=== PATIENT | female | born 1995 | race Caucasian/White ===

== ENCOUNTER 2017-05-26 22:50 | Emergency (ER) | payer SELFPAY ==
[2017-05-27] MEDS ORDERED: Acetaminophen TAB* 325 MG PO ONE (00:40)
[2017-05-27] MEDS ORDERED: NS 0.9% 1000 ML* 1,000 ML IV ONE (00:40)
[2017-05-27] MEDS ORDERED: Ondansetron INJ* 2 MG/ML VIAL IV ONE (00:40)
[2017-05-27] MEDS ORDERED: Loperamide CAP* 2 MG PO ONE (00:42)
[2017-05-27 01:10] LABS: ABS Basophils 0 10^3/ul (0-0.2); ABS Eosinophils 0 10^3/ul (0-0.6); ABS Lymphocytes 0.9 10^3/ul (1.0-4.8); ABS Monocytes 0.7 10^3/ul (0-0.8); ABS Neutrophils 5.5 10^3/ul (1.5-7.7); ABS Nucleated RBC 0 10^3/ul; Eosinophil % 0.4 % (0-6); Hematocrit 45 % (35-47); Hemoglobin 14.8 g/dl (12.0-16.0); Lymphocyte % 12.5 % (25-47); Mean Corpuscular HGB Conc 33 g/dl (31-36); Mean Corpuscular Hemoglobin 28 pg (27-31); Mean Corpuscular Volume 85 fL (80-97); Mean Platelet Volume 9 um3 (7.4-10.4); Nucleated Red Blood Cells % 0.1; Platelet Count 253 10^3/ul (150-450); Red Blood Count 5.25 10^6/ul (4.0-5.4); Red Cell Distribution Width 14 % (10.5-15); White Blood Count 7.2 10^3/ul (3.5-10.8)
[2017-05-27 01:23] LABS: EGFR Non-African American 87.2 (>60)
[2017-05-27 02:06] VITALS: BP 106/71
--- NOTE | 2017-05-27 02:07 | ED ---
Tate Aburto Angela, scribed for Kenny Esteves MD on 05/27/17 at 0044 . GI/ HPI - HPI Summary HPI Summary: This pt is a 21 y/o female presenting to [facility] c/o nausea, vomiting, diarrhea, and abd pain since yesterday. Pt additionally reports chills and fever. She is unable to recall her maximum temperature last night. She describes diarrhea as liquid. LMP: the beginning of April. - History of Current Complaint Chief Complaint: EDNauseaVomitDiarrh Time Seen by Provider: 05/27/17 00:32 Stated Complaint: FEVER Hx Obtained From: Patient Hx Last Menstrual Period: 04/18/14 Onset/Duration: Started Days Ago - 1, Still Present Timing: Lasting Days - 1 Current Severity: Moderate Pain Intensity: 10 Location of Pain: Diffuse Associated Signs and Symptoms: Positive: Nausea, Vomiting, Diarrhea, Fever, Chills Aggravating Factor(s): Nothing Alleviating Factor(s): Nothing - Allergy/Home Medications Allergies/Adverse Reactions: Allergies Allergy/AdvReac Type Severity Reaction Status Date / Time No Known Allergies Allergy Verified 05/26/17 23:02 PMH/Surg Hx/FS Hx/Imm Hx Endocrine/Hematology History: Denies: Hx Diabetes Cardiovascular History: Denies: Hx Hypertension Infectious Disease History: No Infectious Disease History: Denies: History Other Infectious Disease, Traveled Outside the [place] in Last 30 Days - Family History Known Family History: Negative: Cardiac Disease, Hypertension, Diabetes - Social History Alcohol Use: None Substance Use Type: Reports: None Smoking Status (MU): Never Smoked Tobacco Review of Systems Positive: Fever, Chills Cardiovascular: Negative Respiratory: Negative Positive: Abdominal Pain, Vomiting, Diarrhea, Nausea Musculoskeletal: Negative Skin: Negative Neurological: Negative All Other Systems Reviewed And Are Negative: Yes Physical Exam - Summary Physical Exam Summary: VITAL SIGNS: Reviewed. GENERAL: Patient is a well-developed and nourished female who is lying comfortable in the stretcher. Patient is not in any acute respiratory distress. HEAD AND FACE: No signs of trauma. No ecchymosis, hematomas or skull depressions. No sinus tenderness. EYES: PERRLA, EOMI x 2, No injected conjunctiva, no nystagmus. EARS: Hearing grossly intact. Ear canals and tympanic membranes are within normal limits. MOUTH: Oropharynx within normal limits. NECK: Supple, trachea is midline, no adenopathy, no JVD, no carotid bruit, no c- spine tenderness, neck with full ROM. CHEST: Symmetric, no tenderness at palpation LUNGS: Clear to auscultation bilaterally. No wheezing or crackles. CVS: Regular rate and rhythm, S1 and S2 present, no murmurs or gallops appreciated. ABDOMEN: Soft, non-tender. No signs of distention. No rebound no guarding, and no masses palpated. Bowel sounds are normal. EXTREMITIES: FROM in all major joints, no edema, no cyanosis or clubbing. NEURO: Alert and oriented x 3. No acute neurological deficits. Speech is normal and follows commands. SKIN: Dry and warm Triage Information Reviewed: Yes Vital Signs On Initial Exam: Initial Vitals Temp Pulse Resp BP Pulse Ox 97.8 F 111 18 118/81 98 05/26/17 23:00 05/26/17 23:00 05/26/17 23:00 05/26/17 23:00 05/26/17 23:00 Vital Signs Reviewed: Yes Diagnostics - Vital Signs Vital Signs Temp Pulse Resp BP Pulse Ox 05/26/17 23:00 97.8 F 111 18 118/81 98 - Laboratory Result Diagrams: 05/27/17 00:50 05/27/17 00:50 Lab Statement: Any lab studies that have been ordered have been reviewed, and results considered in the medical decision making process. GIGU Course/Dx - Course Course Of Treatment: Pt is a 21 y/o female who presents with nausea, vomiting, diarrhea, and abd pain since yesterday. In the ED course the pt was given IV fluids, Tylenol, Imodium, Zofran. Influenza A and B is negative. Pt will be discharged home with follow up from her PCP. She is instructed to return to the ED for any worsening symptoms. Pt will be given a prescription for Zofran. - Diagnoses Provider Diagnoses: Gastroenteritis, Viral syndrome Discharge - Discharge Plan Condition: Stable Disposition: HOME Prescriptions: Ondansetron TAB* [Zofran 4 MG Tab*] 8 mg PO Q6H PRN #20 tab PRN Reason: Nausea/Vomiting Patient Education Materials: Gastroenteritis (ED), Viral Syndrome (ED) Forms: *Work Release Referrals: Chaparro Baca MD [Primary Care Provider] - 2 Days Additional Instructions: Please follow up with your primary care provider. RETURN TO EMERGENCY DEPARTMENT FOR ANY NEW OR WORSENING SYMPTOMS. The documentation as recorded by the Tate coffman Angela accurately reflects the service I personally performed and the decisions made by , Kenny Esteves MD.
== END 2017-05-27 02:10 | disposition home or self-care (01) ==
LOC: ED 22:50
DX: K52.9 Noninfective gastroenteritis and colitis, unspecified (principal); R11.2 Nausea with vomiting, unspecified; R19.7 Diarrhea, unspecified; R50.9 Fever, unspecified
CPT/HCPCS: 36415; 80053; 82150; 83690; 84702; 85025; 86140; 87502; 96374; 96375; 99283; A9270-GY; J2405